=== PATIENT | male | born 1935 | race Caucasian/White ===

== ENCOUNTER 2019-07-31 02:14 | Inpatient (IN) | payer OTHER ==
[~2019-07-31] VITALS: Ht 182.8 cm; Wt 104.6 kg
[2019-07-31] MEDS ORDERED: IMDUR SA30 MG PO (02:23)
[2019-07-31] MEDS ORDERED: PANTOPRAZOLE SO40 MG PO (02:24)
[2019-07-31] MEDS ORDERED: PRINIVIL10 MG PO (02:24)
[2019-07-31] MEDS ORDERED: MAGNESIUM400 M1 PO (02:25)
[2019-07-31] MEDS ORDERED: CLOPIDOGREL75 MG PO (02:25)
[2019-07-31] MEDS ORDERED: FUROSEMIDE20 M1 PO (02:25)
[2019-07-31] MEDS ORDERED: TOPAMAX25 M3 PO (02:26)
[2019-07-31 03:03] VITALS: BP 120/74
[2019-07-31 06:26] LABS: BASO % 0.5 % (0.0-1.0); EOS # 0.2 10*3/uL (0.0-0.4); EOS % 2.3 % (1.0-4.0); LYMPH # 1.6 10*3/uL (1.3-4.4); LYMPH % 21.2 % (27.0-41.0); MEAN CELL VOLUME 95.4 fl (80.0-94.0); MEAN CORPUSCULAR HGB 30.5 pg (27.0-31.0); MEAN PLATELET VOLUME 9.8 fl (9.6-12.3); MONO # 0.6 10*3/uL (0.1-1.0); MONO % 8.6 % (3.0-9.0); NEUT % 66.5 % (47.0-73.0); PLATELET COUNT AUTOMATED 160 10*3/uL (130-400); RED BLOOD COUNT 5.24 10*6/uL (4.50-5.90); RED CELL DISTRI WIDTH 12.6 % (0-14.5); WHITE BLOOD COUNT 7.5 10*3/uL (4.8-10.8)
[2019-07-31 06:34] LABS: ALBUMIN 3.3 gm/dl (3.1-4.5); ALKALINE PHOSPHATASE 78 U/L (45-117); BUN 21 mg/dl (7-24); CHLORIDE 108 mmol/L (98-107); CHOLESTEROL 120 mg/dL (<200); HDL CHOLESTEROL 38 mg/dl (40-60); LDL CHOLESTEROL 70 mg/dL (9-159); POTASSIUM 4.1 mmol/L (3.5-5.1); SGOT/AST 25 IU/L (3-35); SGPT/ALT 22 U/L (12-78); SODIUM 138 mmol/L (136-145); TOTAL PROTEIN 6.1 gm/dL (6.4-8.2); TRIGLYCERIDES 59 mg/dl (<150); VLDL CHOLESTEROL 12 mg/dL (6-40)
[2019-07-31 06:41] LABS: CREATININE 1.32 mg/dL (0.70-1.30)
[2019-07-31 07:34] LABS: VITAMIN D, 25-HYDROXY 41.8 ng/mL (30-100)
[2019-07-31 07:42] VITALS: BP 117/71
[2019-07-31 20:00] VITALS: BP 110/62
[2019-08-01 07:49] VITALS: BP 139/87
[2019-08-01 19:46] VITALS: BP 126/69
[2019-08-02 07:51] VITALS: BP 140/77
[2019-08-02 20:00] VITALS: BP 129/70
[2019-08-03 07:48] VITALS: BP 142/82
[2019-08-03 20:00] VITALS: BP 132/68
[2019-08-04 07:32] VITALS: BP 125/88
[2019-08-04 19:51] VITALS: BP 110/67
[2019-08-05 07:41] VITALS: BP 130/71
[2019-08-05] MEDS ORDERED: MIRTAZAPINE15 M2 PO (08:57)
[2019-08-05] MEDS ORDERED: MEMANTINE HCL10 MG PO (08:57)
[2019-08-05] MEDS ORDERED: RIVASTIGMINE1 EAC2 T (08:57)
== END 2019-08-05 14:00 | disposition home or self-care (01) | DRG 883 ==
LOC: 3N 02:14
PROVIDERS: ADMIT Psychiatry & Neurology Psychiatry
PROC: 0HBRXZZ Excision of Toe Nail, External Approach (ICD-10-PCS; principal; 2019-07-31)
DX: F63.81 Intermittent explosive disorder (principal); I10 Essential (primary) hypertension; M54.9 Dorsalgia, unspecified; F41.9 Anxiety disorder, unspecified; F32.9 Major depressive disorder, single episode, unspecified; G30.9 Alzheimer's disease, unspecified; F02.80 Dementia in other diseases classified elsewhere, unspecified severity, without behavioral disturbance, psychotic disturbance, mood disturbance, and anxiety; B35.1 Tinea unguium; M79.89 Other specified soft tissue disorders; D47.3 Essential (hemorrhagic) thrombocythemia; K44.9 Diaphragmatic hernia without obstruction or gangrene; K21.9 Gastro-esophageal reflux disease without esophagitis; G56.00 Carpal tunnel syndrome, unspecified upper limb; Z90.49 Acquired absence of other specified parts of digestive tract; Z91.030 Bee allergy status; Z91.048 Other nonmedicinal substance allergy status; Z79.899 Other long term (current) drug therapy; Z85.22 Personal history of malignant neoplasm of nasal cavities, middle ear, and accessory sinuses